=== PATIENT | male | born 1965 ===

== ENCOUNTER 2018-12-14 05:50 | Day surgery (SDC) | payer OTHER ==
[~2018-12-14 05:50] MED LIST: ANORO ELLIPTA1 EACH IH; MONTELUKAST SOD10 MG PO
[2018-12-14] MEDS ORDERED: NEURONTIN300 MG PO (11:59)
[2018-12-14] MEDS ORDERED: PERCOCET 5-3251 EACH PO (11:59)
[2018-12-14] MEDS ORDERED: COLACE100 MG PO (12:00)
== END 2018-12-14 14:30 | disposition home or self-care (01) ==
LOC: CIR.AMB 05:50
DX: K40.20 Bilateral inguinal hernia, without obstruction or gangrene, not specified as recurrent (principal)

== ENCOUNTER 2020-11-20 09:59 | Outpatient (CLI) | payer OTHER ==
[~2020-11-20 09:59] MED LIST changes: +COLACE100 MG PO; +NEURONTIN300 MG PO; +PERCOCET 5-3251 EACH PO
== END 2020-11-20 12:52 | disposition home or self-care (01) ==
LOC: OFIC 805 09:59
PROVIDERS: ATTEND Otolaryngology Otology & Neurotology
DX: J31.0 Chronic rhinitis (principal); G47.33 Obstructive sleep apnea (adult) (pediatric)

== ENCOUNTER 2025-03-27 13:55 | Outpatient (CLI) | payer OTHER | END 2025-03-27 13:59 | disposition home or self-care (01) | LOC: RAD 13:55 | DX: G47.30 Sleep apnea, unspecified (principal); R00.1 Bradycardia, unspecified; E05.90 Thyrotoxicosis, unspecified without thyrotoxic crisis or storm ==